=== PATIENT | female | born 1950 | race Two or more races ===

== ENCOUNTER → 2016-12-13 | Day surgery (SDC) | payer OTHER ==
--- NOTE | 2016-12-14 14:40 | PATH ---
Surgical Pathology Report Patient Name: MARIUSZ DONNELLY [facility]. Rec. #: [id number] /Age/Gender: 1950 (Age: 66) / F Account: [id number] Location: [facility] Taken: 12/13/2016 Received: 12/13/2016 Reported: 12/14/2016 Physicians: Evonne Julian M.D. Specimen(s) Received A: RIGHT BREAST SPECIMEN WITH CALCIFICATIONS B: RIGHT BREAST SPECIMEN WITHOUT CALCIFICATIONS Clinical History Nonpalpable lesion, microcalcification, suspicious Final Diagnosis A. RIGHT BREAST, WITH CALCIFICATION, STEREOTACTIC NEEDLE CORE BIOPSY: DUCTAL CARCINOMA IN SITU (DCIS), INTERMEDIATE NUCLEAR GRADE, SOLID PATTERN WITH CENTRAL NECROSIS AND ASSOCIATED CALCIFICATION. Results of Estrogen Receptor (ER) and Progesterone Receptor (NH) studies performed on block "A" at [facility] are as follows: ER (clone [id number] mouse monoclonal antibody by [employer]): >95% nuclear staining with strong intensity (Positive). NH (clone16 mouse monoclonal antibody by [employer]) : ~70% nuclear staining with strong intensity (Positive). Positive and negative controls (internal if applicable) show appropriate results. Formalin fixation and cold ischemic times are within current ASCO/CAP recommendations for ER, NH and Her2 testing. B. RIGHT BREAST, WITHOUT CALCIFICATION, STEREOTACTIC NEEDLE CORE BIOPSY: DUCTAL CARCINOMA IN SITU (DCIS), INTERMEDIATE NUCLEAR GRADE, SOLID PATTERN WITH CENTRAL NECROSIS AND ASSOCIATED CALCIFICATION. Comment: Immunohistochemical stains on Specimen A performed and interpreted at [facility] show the following results: P63 and smooth muscle myosin heavy chain show preservation of the myoepithelial cell layer in areas of DCIS. This case was discussed with JODI Curry of Dr. Quinn Hanks's office on December 14, 2016. Electronically Signed Agusto Deras M.D. Gross Description A. Received in formalin, labeled "right breast with calcifications," is a 2.5 x 2.1 x 0.3 cm aggregate of multiple mcgrath-yellow, irregular to cylindrical portions of fibroadipose tissue. The formalin is filtered and the specimen is entirely submitted in one cassette. B. Received in formalin, labeled "right breast without calcification," are 3 mcgrath-yellow, cylindrical portions of fibroadipose tissue ranging from 1.0-2.1 cm. in length and averaging 0.3 cm. in diameter. The specimen is submitted in toto in one cassette. Time to formalin fixation: 5 minutes Total formalin fixation time: Approximately 6 hours. 12/13/201612/13/2016
== END | disposition home or self-care (01) ==
LOC: FMAMMOTONE 10:50
PROVIDERS: ATTEND Surgery
PROC: 0HBT3ZX Excision of Right Breast, Percutaneous Approach, Diagnostic (ICD-10-PCS; principal; 2016-12-13)
DX: D05.11 Intraductal carcinoma in situ of right breast (principal); R92.1 Mammographic calcification found on diagnostic imaging of breast
CPT/HCPCS: 19081; 87899; 88305-TC; 88341-TC; 88342-TC; A4648

== ENCOUNTER → 2016-12-14 | Day surgery (SDC) | payer OTHER ==
--- NOTE | 2016-12-17 15:09 | PATH ---
Surgical Pathology Report Patient Name: MARIUSZ DONNELLY [facility]. Rec. #: [id number] /Age/Gender: 1950 (Age: 66) / F Account: [id number] Location: [facility]END[facility] TO [facility] Taken: 12/14/2016 Received: 12/14/2016 Reported: 12/17/2016 Physicians: Luis Angel Alejandro M.D. Specimen(s) Received A: LEFT BREAST CORE BIOPSY SITE 1, 12 O'CLOCK 1CM FN B: LEFT BREAST CORE BIOPSY SITE 2, 5 O'CLOCK 7CM FN Clinical History Ultrasound findings: Highly suspicious/malignant Final Diagnosis A. BREAST, LEFT, SITE 1, 12:00, 1 CM FN, CORE BIOPSY: INVASIVE LOBULAR CARCINOMA, CLASSICAL TYPE (NUCLEAR GRADE 2), MEASURING 1.0 CM IN GREATEST DIMENSION IN THIS MATERIAL. (SEE NOTE) Note: The carcinoma is negative for E-Cadherin (performed at [facility]), which supports lobular phenotype. Results of Estrogen Receptor (ER) and Progesterone Receptor (VA) studies performed on block A at [facility] are as follows: ER (clone [id number] mouse monoclonal antibody by [employer]): > 95 % nuclear staining with strong intensity (Positive). VA (clone16 mouse monoclonal antibody by [employer]): > 95 % nuclear staining with strong intensity (Positive). B. BREAST, LEFT, SITE 2, 5:00, 7 CM FN, CORE BIOPSY: INVASIVE DUCTAL CARCINOMA, MODERATELY DIFFERENTIATED, MEASURING 1 CM IN GREATEST DIMENSION IN THIS MATERIAL. DUCTAL CARCINOMA IN SITU (DCIS), SOLID TYPE, INTERMEDIATE NUCLEAR GRADE. Note: The carcinoma is positive for E-Cadherin (performed at [facility]), which supports ductal phenotype. Results of Estrogen Receptor (ER) and Progesterone Receptor (VA) studies performed on block B at [facility] are as follows: ER (clone 6F11 mouse monoclonal antibody by [employer]): 90 % nuclear staining with strong intensity (Positive). VA (clone16 mouse monoclonal antibody by [employer]):0 % nuclear staining (Negative). Results of Her2 and Ki67 studies will be reported separately in an addendum. Positive and negative controls (internal if applicable) show appropriate results. Formalin fixation and cold ischemic times are within current ASCO/CAP recommendations for ER, VA and Her2 testing. Electronically Signed Jasmyn Jones M.D. Addendum Reported: 12/18/2016 Addendum Diagnosis Results of Her2 (IHC) & Ki-67 studies performed on block A (invasive lobular carcinoma) at [place], [place] ([id number]) are as follows: Her2 IHC (EP3 from [employer], formerly known as [id number], using [employer] Polymer Refine detection kit): 0 (Negative) Ki-67: ~20% (Intermediate). Results of Her2 (IHC) & Ki-67 studies performed on block B (invasive ductal carcinoma) at [place], [place] ([id number]) are as follows: Her2 IHC (EP3 from [employer], formerly known as [id number], using [employer] Polymer Refine detection kit): 3+ (Positive). Ki-67: 35-40% (High). Positive and negative controls (internal if applicable) show appropriate results. Jasmyn Jones M.D. Gross Description A. Received in formalin, labeled "left breast 12:00, 1 cmfn," are 4 mcgrath-yellow, cylindrical portions of fibroadipose tissue ranging from 1.5-2.0 cm. in length and averaging 0.2 cm. in diameter. The specimen is submitted in toto in one cassette. B. Received in formalin, labeled "left breast 5:00, 7 cmfn," is a 2.1 x 1.8 x 0.3 cm aggregate of multiple mcgrath-yellow, irregular to cylindrical portions of fibroadipose tissue. The specimen is submitted in toto in one cassette. Time to formalin fixation: 2 minutes Total formalin fixation time: Approximately 50 hours. 12/14/201612/14/2016
== END | disposition home or self-care (01) ==
LOC: FRADUS-SUR 12:51
PROVIDERS: ATTEND Surgery
PROC: 0HBU3ZX Excision of Left Breast, Percutaneous Approach, Diagnostic (ICD-10-PCS; principal; 2016-12-14)
DX: N63 Unspecified lump in breast (principal); C50.512 Malignant neoplasm of lower-outer quadrant of left female breast; C50.812 Malignant neoplasm of overlapping sites of left female breast
CPT/HCPCS: 19083; 19084; 87899; 88305-TC; 88342-TC; A4648; G0204-TC